=== PATIENT | female | born 1980 ===

== ENCOUNTER 2016-12-07 18:57 | Emergency (ER) | payer SELFPAY ==
[2016-12-07 19:12] VITALS: PULSE 72; RESP 16; TEMP 98.5; O2SAT 98
[2016-12-07] MEDS ORDERED: Povidone Iodine Topical 10% Sol ONE (19:43)
--- NOTE | 2016-12-07 19:45 | ED PDOC ---
HPI: Female Pain Time Seen by Provider: 12/07/16 19:23 Chief Complaint (Nursing): Hip Pain Chief Complaint (Provider): Right hip pain History Per: Patient History/Exam Limitations: no limitations Onset/Duration Of Symptoms: Days (x1 week), Worse Since (today) Current Symptoms Are (Timing): Still Present Quality Of Discomfort: "Pain" Associated Symptoms: Nausea, Back Pain (right lower back) Additional Complaint(s): Edda Maynard is a 36 year old female, with no past medical history, who presents to the emergency department complaining of right hip pain radiating to her back and leg associated with right arm and neck pain onset for 1 week. She reports frequent urination with a yellow coloration and foul smell. Patient states her hip pain worsened since last night and took advil to treat symptoms. She denies any chest pain, and hematuria. PMD: None Past Medical History Reviewed: Historical Data, Nursing Documentation, Vital Signs Vital Signs: Last Vital Signs Temp 98.5 F 12/07/16 19:07 Pulse 72 12/07/16 19:07 Resp 16 12/07/16 19:07 BP Pulse Ox 98 12/07/16 19:07 - Medical History PMH: No Chronic Diseases Denies: Chronic Kidney Disease - Surgical History Surgical History: - Family History Family History: States: Unknown Family Hx - Immunization History Hx Tetanus Toxoid Vaccination: No Hx Influenza Vaccination: No Hx Pneumococcal Vaccination: No - Home Medications Home Medications: Ambulatory Orders Medication Instructions Recorded Acetaminophen/Codeine Phosph 1 tab PO .Q4-6 H PRN #30 tab 04/04/13 [Acetaminophen/Codeine 300 mg-30 mg] Amoxicillin/Clavulanate [Augmentin 1 tab PO Q12 #20 tab 04/04/13 875 MG-125 MG] Tobramycin 0.3% [Tobrex 0.3% Ophth 1 drop OP Q2 #1 bottle 04/04/13 Soln] Ciprofloxacin HCl [Cipro] 250 mg PO BID #6 tab 12/07/16 - Allergies Allergies/Adverse Reactions: Allergies Allergy/AdvReac Type Severity Reaction Status Date / Time No Known Allergies Allergy Verified 12/07/16 19:39 Review of Systems ROS Statement: Except As Marked, All Systems Reviewed And Found Negative Cardiovascular: Negative for: Chest Pain Gastrointestinal: Positive for: Nausea. Negative for: Abdominal Pain Genitourinary Female: Positive for: Frequency, Other (yellow coloration and foul smell). Negative for: Dysuria, Hematuria Musculoskeletal: Positive for: Shoulder Pain (right shoulder) Physical Exam - Reviewed Nursing Documentation Reviewed: Yes Vital Signs Reviewed: Yes - Physical Exam Appears: Positive for: Well, Non-toxic, No Acute Distress Head Exam: Positive for: ATRAUMATIC, NORMAL INSPECTION, NORMOCEPHALIC Skin: Positive for: Normal Color, Warm, Dry Eye Exam: Positive for: EOMI, Normal appearance, PERRL Neck: Positive for: Normal, Painless ROM Cardiovascular/Chest: Positive for: Regular Rate, Rhythm Respiratory: Positive for: CNT, Normal Breath Sounds Gastrointestinal/Abdominal: Positive for: Normal Exam, Bowel Sounds, Soft, Tenderness (Suprapubic ) Back: Positive for: R CVA Tenderness Extremity: Positive for: Normal ROM (Right shoulder full ROM, axillary nerve intact), Other (Good pronation and supination. AC joint non tender. Mild swelling SCM) Neurologic/Psych: Positive for: Alert, Oriented - ECG O2 Sat by Pulse Oximetry: 98 (RA) Pulse Ox Interpretation: Normal Medical Decision Making Medical Decision Making: Initial Impression: Urinary tract infection Initial Plan: --Urine Dipstick --Urine --Toradol 30mg IM --reevaluation pt improved. estefanía gallagherc with flexril and naproxen an pt with UTI symptoms thought no luek on UDIP will given cipro and advse to f.u wt obgyn Scribe Attestation: Documented by Mike Valdez, acting as a scribe for Susan BERGER. Provider Scribe Attestation: All medical record entries made by the Scribe were at my direction and personally dictated by me. I have reviewed the chart and agree that the record accurately reflects my personal performance of the history, physical exam, medical decision making, and the department course for this patient. I have also personally directed, reviewed, and agree with the discharge instructions and disposition. Disposition - Clinical Impression Clinical Impression: Muscle pain, UTI (urinary tract infection) - Patient ED Disposition Is Patient to be Admitted: No Counseled Patient/Family Regarding: Studies Performed, Diagnosis, Need For Followup, Rx Given - Disposition Referrals: [facility] [Outside] [facility] [Outside] Disposition: Routine/Home Disposition Time: 20:33 Condition: STABLE Prescriptions: Ciprofloxacin HCl [Cipro] 250 mg PO BID #6 tab Instructions: Urinary Tract Infection in Women (DC) Forms: [employer] (Qatari), [facility] ED School/Work Excuse Print Language: ESTONIAN
== END 2016-12-07 20:46 | disposition home or self-care (01) ==
LOC: H.ER 18:57
DX: N39.0 Urinary tract infection, site not specified (principal); M25.551 Pain in right hip

== ENCOUNTER 2018-01-27 19:28 | Emergency (ER) | payer SELFPAY ==
[2018-01-27 19:43] VITALS: BP 150/86; PULSE 74; RESP 17; TEMP 99.1; O2SAT 100
--- NOTE | 2018-01-27 21:30 | ED PDOC ---
Lower Extremity Pain/Injury Time Seen by Provider: 01/27/18 19:49 Chief Complaint (Nursing): Lower Extremity Problem/Injury Chief Complaint (Provider): Right Ankle Pain History Per: Patient History/Exam Limitations: no limitations Onset/Duration Of Symptoms: Hrs Current Symptoms Are (Timing): Still Present Additional Complaint(s): 37 year old female presents to the ER for an evaluation of right ankle pain onset today. Patient states earlier at work, she was on a ladder and she fell twisting her right ankle. She notes of pain and swelling on the area. Patient took Tylenol prior to arrival. Denies numbness or tingling. PMD: [facility] Past Medical History Reviewed: Historical Data, Nursing Documentation, Vital Signs Vital Signs: Last Vital Signs Temp 99.1 F 01/27/18 19:39 Pulse 74 01/27/18 19:39 Resp 17 01/27/18 19:39 BP 150/86 01/27/18 19:39 Pulse Ox 100 01/27/18 19:39 - Medical History PMH: No Chronic Diseases Denies: Chronic Kidney Disease - Surgical History Surgical History: - Family History Family History: States: Unknown Family Hx - Social History Current smoker - smoking cessation education provided: No Alcohol: None Drugs: Denies - Immunization History Hx Tetanus Toxoid Vaccination: No Hx Influenza Vaccination: No Hx Pneumococcal Vaccination: No - Home Medications Home Medications: Ambulatory Orders Medication Instructions Recorded Acetaminophen/Codeine Phosph 1 tab PO .Q4-6 H PRN #30 tab 04/04/13 [Acetaminophen/Codeine 300 mg-30 mg] Amoxicillin/Clavulanate [Augmentin 1 tab PO Q12 #20 tab 04/04/13 875 MG-125 MG] Tobramycin 0.3% [Tobrex 0.3% Ophth 1 drop OP Q2 #1 bottle 04/04/13 Soln] Ciprofloxacin HCl [Cipro] 250 mg PO BID #6 tab 12/07/16 Cyclobenzaprine [Cyclobenzaprine 10 mg PO BID #14 tab 12/07/16 HCl] Ibuprofen [Motrin] 400 mg PO Q6 #30 tab 12/07/16 Ibuprofen [Motrin Tab] 800 mg PO Q6H PRN #20 tab 01/27/18 - Allergies Allergies/Adverse Reactions: Allergies Allergy/AdvReac Type Severity Reaction Status Date / Time No Known Allergies Allergy Verified 12/07/16 19:39 Review of Systems ROS Statement: Except As Marked, All Systems Reviewed And Found Negative Musculoskeletal: Positive for: Foot Pain (right ankle pain) Neurological: Negative for: Numbness, Other (tingling ) Psych: Negative for: Suicidal ideation (homicidal ideation ) Physical Exam - Reviewed Nursing Documentation Reviewed: Yes Vital Signs Reviewed: Yes - Physical Exam Appears: Positive for: Well, Non-toxic, No Acute Distress Head Exam: Positive for: ATRAUMATIC, NORMAL INSPECTION, NORMOCEPHALIC Skin: Positive for: Normal Color, Warm, Dry. Negative for: Rash Eye Exam: Positive for: Normal appearance Pulses-Dorsalis Pedis (L): 2+ Pulses-Dorsalis Pedis (R): 2+ Pulses-Post. Tibialis (L): 2+ Pulses-Post. Tibialis (R): 2+ Extremity: Positive for: Normal ROM (full), Capillary Refill (less than 2 seconds ), Swelling (lateral mallelous ), Other (sensation intact, no ecchymosis ). Negative for: Deformity Neurologic/Psych: Positive for: Alert, Oriented - ECG O2 Sat by Pulse Oximetry: 100 (RA) Pulse Ox Interpretation: Normal Medical Decision Making Medical Decision Making: Time: 2019 Initial Plan: --Motrin 600mg --Ankle Right 3 Views Routine [RAD] --Foot Right 3 Views Routine [RAD] --Reevaluation ------ Scribe Attestation: Documented by Haley Aguirre, acting as a scribe for Janette Zarate PA-C. Provider Scribe Attestation: All medical record entries made by the Scribe were at my direction and personally dictated by me. I have reviewed the chart and agree that the record accurately reflects my personal performance of the history, physical exam, medical decision making, and the department course for this patient. I have also personally directed, reviewed, and agree with the discharge instructions and disposition. Disposition - Clinical Impression Clinical Impression: Ankle sprain - Patient ED Disposition Is Patient to be Admitted: No Counseled Patient/Family Regarding: Diagnosis, Need For Followup, Rx Given - Disposition Referrals: [facility] [Outside] [facility] [Outside] Disposition: Routine/Home Disposition Time: 21:29 Condition: GOOD Prescriptions: Ibuprofen [Motrin Tab] 800 mg PO Q6H PRN #20 tab PRN Reason: Pain Instructions: Ankle Sprain (DC) Forms: [employer] (Italian), [facility] ED School/Work Excuse Print Language: KINYARWANDA
--- NOTE | 2018-01-28 09:31 | RAD ---
Date of service: 01/27/2018 PROCEDURE: Right Ankle Radiographs. Right foot radiographs. HISTORY: lateral pain, fall from ladder COMPARISON: None FINDINGS: BONES: No acute fracture. Os trigonum. Os peroneum. JOINTS: Ankle mortise maintained. Talar dome intact SOFT TISSUES: Lateral malleolar soft tissue swelling. Small ankle joint effusion. OTHER FINDINGS: Fractured Achilles enthesophyte. Small inferior plantar calcaneal spur. IMPRESSION: Lateral malleolar soft tissue swelling and small ankle joint effusion without demonstrated fracture or dislocation.
== END 2018-01-27 21:40 | disposition home or self-care (01) ==
LOC: H.ER 19:28
DX: S93.401A Sprain of unspecified ligament of right ankle, initial encounter (principal); W11.XXXA Fall on and from ladder, initial encounter; Y99.0 Civilian activity done for income or pay